=== PATIENT | male | born 1990 | race Asian ===

== ENCOUNTER 2019-07-31 20:34 | Emergency (ER) | payer OTHER ==
[2019-07-31 21:08] VITALS: BP 150/77
--- NOTE | 2019-07-31 21:12 | UC ---
General HPI - HPI Summary HPI Summary: SUDDEN LOSS OF LEFT LOWER VISUAL FIELD AT ABOUT 8 PM TONIGHT WHILE WATCHING TELEVISION. ALSO REPORTS WHAT SOUNDS LIKE SCOTOMATA IN THE REMAINDER OF HIS VISUAL SKY. HAS ASSOCIATED RIGHT OCCIPITAL AND RIGHT FRONTOTEMPORAL THROBBING HEADACHE. DENIES ANY RECENT HEAD INJURY OR TRAUMA. IS NOT UNDER UNDUE STRESS. NO SLEEP DEPRIVATION. NO RECENT ILLNESS OR FEVER. STATES HE HAD SIMILAR SYMPTOMS ABOUT 4 YEARS AGO THAT STARTED WHILE HE WAS IN A HEATED ARGUMENT WITH HIS PARENTS. HE DID NOT SEEK MEDICAL EVALUATION AT THAT TIME AND THE SYMPTOMS RESOLVED BY THE NEXT DAY. REPORTS A HISTORY OF SIGNIFICANT HEAD TRAUMA WHEN HE WAS 4 OR 5 YEARS OLD (STRUCK HIS HEAD ON THE BATHTUB) AND REMEMBERS SIMILAR SYMPTOMS AT THAT TIME WELL. WENT TO THE HOSPITAL AND HAD NEUROIMAGING WHICH WAS NORMAL. - History of Current Complaint Chief Complaint: UCHeadache Stated Complaint: VISUAL DISTORTION Time Seen by Provider: 07/31/19 20:39 Hx Obtained From: Patient, Family/Sprigger - Onset/Duration: Sudden Onset, Lasting Minutes, Still Present - BUT BETTER Timing: Constant Onset Severity: Moderate Current Severity: Mild Pain Intensity: 3 Associated Signs & Symptoms: Positive: Dizziness, Headache. Negative: Confusion , Nausea, Weakness - Allergy/Home Medications Allergies/Adverse Reactions: Allergies Allergy/AdvReac Type Severity Reaction Status Date / Time No Known Allergies Allergy Verified 07/31/19 20:43 Home Medications: Home Medications NK [No Home Medications Reported] 07/31/19 [History Confirmed 07/31/19] PMH/Surg Hx/FS Hx/Imm Hx Previously Healthy: Yes - Surgical History Surgical History: None - Family History Known Family History: Positive: Diabetes - Social History Alcohol Use: Occasionally Substance Use Type: None Smoking Status (MU): Never Smoked Tobacco Review of Systems All Other Systems Reviewed And Are Negative: Yes Constitutional: Positive: Other - DIZZY Eyes: Positive: Other - LEFT LOWER VISUAL FIELD LOSS Respiratory: Positive: Negative Cardiovascular: Positive: Negative Gastrointestinal: Positive: Negative Neurological: Positive: Headache - RIGHT OCCIPITAL, RIGHT FRONTOTEMPORAL Physical Exam Triage Information Reviewed: Yes Appearance: Well-Appearing, No Pain Distress, Well-Nourished Vital Signs: Initial Vital Signs Temp 98.1 F 07/31/19 20:38 Pulse 93 07/31/19 20:38 Resp 16 07/31/19 20:38 BP 147/82 07/31/19 20:38 Pulse Ox 99 07/31/19 20:38 Vital Signs Reviewed: Yes Eyes: Positive: Conjunctiva Clear, Other: - PERRL, EOMI ENT: Positive: Hearing grossly normal, Pharynx normal, TMs normal Neck: Positive: Supple, Nontender, No Lymphadenopathy Respiratory Exam: Normal Cardiovascular Exam: Normal Abdomen Description: Positive: Nontender, Soft Musculoskeletal: Positive: No Edema Neurological: Positive: Alert, Muscle Tone Normal, Other: - CN II-XII GROSSLY INTACT BILATERALLY. RAPID ALTERNATING MOVEMENTS INTACT. NEG PRONATOR DRIFT. NEG ROMBERG. 5/5 STRENGTH. HEEL TO STEVENS INTACT BILATERALLY. TANDEM GAIT INTACT. LEFT LOWER VISUAL FIELD DEFICIT. Psychological: Positive: Normal Response To Family, Age Appropriate Behavior Skin: Negative: Rashes Course/Dx - Course Course Of Treatment: TO [facility] [place] [facility] BY AMBULANCE - Diagnoses Provider Diagnosis: Visual field loss - Physician Notifications Discussed Patient Care With: Naomi Valdez - TO [facility] [place] [facility] BY AMBULANCE Time Discussed With Above Provider: 21:10 Instructed by Provider To: MD Will See In ED Discharge ED - Sign-Out/Discharge Documenting (check all that apply): Patient Departure All imaging exams completed and their final reports reviewed: No Studies - Discharge Plan Condition: Fair Disposition: TRANS HIGHER LVL OF CARE FAC Referrals: No Primary Care Phys,NOPCP [Primary Care Provider] - - Billing Disposition and Condition Condition: FAIR Disposition: Trans Higher Lvl of Care Fac
== END 2019-07-31 21:15 | disposition short-term general hospital (02) ==
LOC: UCEAST 20:34
DX: H54.7 Unspecified visual loss (principal); R51 Headache
CPT/HCPCS: 99203; G0463

== ENCOUNTER 2019-07-31 21:33 | Observation (INO) | payer OTHER ==
[2019-07-31] MEDS ORDERED: NS 0.9% 1000 ML** 1,000 ML IV ONE (21:46)
[2019-07-31 22:12] LABS: ABS Lymphocytes 2.6 10^3/ul (1.0-4.8); ABS Monocytes 0.7 10^3/ul (0-0.8); ABS Neutrophils 4.6 10^3/ul (1.5-7.7); Eosinophil % 0.1 %; Hematocrit 44 % (42-52); Hemoglobin 14.8 g/dL (14.0-18.0); Mean Corpuscular HGB Conc 34 g/dL (31-36); Mean Corpuscular Hemoglobin 29 pg (27-31); Mean Corpuscular Volume 85 fL (80-94); Mean Platelet Volume 7.1 fL (7.4-10.4); Nucleated Red Blood Cells % 0.1; Platelet Count 306 10^3/uL (150-450); Red Blood Count 5.15 10^6 /uL (4.18-5.48); Red Cell Distribution Width 13 % (10-15); White Blood Count 7.9 10^3/uL (3.5-10.8)
--- NOTE | 2019-07-31 22:13 | ED ---
Neurological HPI - HPI Summary HPI Summary: This pt is a 28 Y/O M presenting to [facility] accompanied by his for a CC of visual issues that started around 1999 while watching TV. He states that he became disoriented and was unable to see faces or see anything out of the L side of his head. He states that he started to experience numbness on the L side of his arms, upper parts of his lips, and the back of his tongue. He states that he has had a persistent headache above his eyebrow and is currently rated a 4/10 in severity. He states that he has had persistent nausea as well. He denies any CP, abdominal pain, vomiting, fevers, chills. He states that the numbness has been moving through out the described areas and has not been consistent in one spot. He has no aggravating or alleviating factors. He states a PMHx of similar symptoms that occurred when he was 5 years old and again when he was 23 following an argument with his parents. - History of Current Complaint Chief Complaint: EDNeurologicalDeficit Stated Complaint: LT SIDED WEAKNESS PER EMS Time Seen by Provider: 07/31/19 21:46 Last Known Well Date: before 1999 today Hx Obtained From: Patient Onset/Duration: Sudden Onset, Resolved Timing: Constant Onset Severity: Moderate Current Severity: Moderate Neurological Deficit Location: Facial - numbness, LUE - states that he had numbness Headache Location: Diffuse (Left) Pain Intensity: 4 Pain Scale Used: 0-10 Numeric Character: Numbness/Tingling - LUE, upper lip, and back of tongue, Sensory Loss - states visual loss in his L eye, Confusion, Visual Changes - L side was unable to be seen out of, couldn't see faces correctly Aggravating: Nothing Alleviating: Nothing Associated Signs and Symptoms: Positive: Headache, Numbness - LUE, upper lip, back of tongue, Nausea/Vomiting - denies vomiting. Negative: Fever, Chest Pain TPA Considered: No - symptoms are rapidly improving, NIH scale of 0. Similar Episode/Dx as: age 5 when he hit his head, and when he was 23 after an argument. - Allergy/Home Medications Allergies/Adverse Reactions: Allergies Allergy/AdvReac Type Severity Reaction Status Date / Time No Known Allergies Allergy Verified 07/31/19 21:43 PMH/Surg Hx/FS Hx/Imm Hx Previously Healthy: Yes Endocrine/Hematology History: Denies: Hx Diabetes Cardiovascular History: Denies: Hx Hypertension Neurological History: Reports: Other Neuro Impairments/Disorders - States similar episodes - Surgical History Surgical History: None - Immunization History Immunizations Up to Date: Yes Infectious Disease History: No Infectious Disease History: Denies: Traveled Outside the [place] in Last 30 Days - Family History Known Family History: Positive: Hypertension, Diabetes - Social History Occupation: Student - [employer] Lives: With Family Alcohol Use: Occasionally Alcohol Amount: 2-3 beers a week Hx Substance Use: No Substance Use Type: Reports: None Hx Tobacco Use: Yes Smoking Status (MU): Former Smoker Amount Used/How Often: 6 cigarettes per day for 2 years Length of Time of Smoking/Using Tobacco: Quit 1.5 years ago Household Exposure: No Review of Systems Negative: Fever, Chills Eyes: Other - couldn't see out of his L eye Negative: Chest Pain Positive: Nausea. Negative: Abdominal Pain, Vomiting Neurological: Other - states that he was unable to understand any faces. Positive: Headache, Numbness - LUE, Upper lip, back of tongue All Other Systems Reviewed And Are Negative: Yes Physical Exam - Summary Physical Exam Summary: Appearance: Well-appearing, Well-nourished, lying in bed comfortably Skin: Warm, dry, no obvious rash Eyes: sclera anicteric, no conjunctival pallor ENT: mucous membranes moist, pharynx appears normal Neck: Supple, nontender Respiratory: Clear to auscultation, no signs of respiratory distress Cardiovascular: Normal S1, S2. No murmurs. Normal distal pulses in tibial and radial bilaterally. Abdomen: Soft, nontender, normal active bowel sounds present Musculoskeletal: Normal, Strength/ROM Intact, Motor function in all 4 extremities is normal and symmetric. There is no rigidity or tremor noted. Neurological: A&Ox3, awake and alert, mentation is normal, speech is fluent and appropriate, Level of consciousness nml. The patient is alert and oriented. Cranial nerves are grossly intact. Gaze is conjugate and without nystagmus. Peripheral vision is intact to confrontation. There are no gross sensory abnormalities to light touch. There is no truncal or fine motor ataxia. Gait is normal. Psychiatric: affect is normal, does not appear anxious or depressed Triage Information Reviewed: Yes Vital Signs On Initial Exam: Initial Vitals Temp Pulse Resp BP Pulse Ox 97.7 F 76 14 149/88 96 07/31/19 21:40 07/31/19 21:40 07/31/19 21:40 07/31/19 21:40 07/31/19 21:40 Vital Signs Reviewed: Yes Procedures - Sedation Patient Received Moderate/Deep Sedation with Procedure: No Diagnostics - Vital Signs Vital Signs Temp Pulse Resp BP Pulse Ox 07/31/19 21:57 98 07/31/19 21:40 97.7 F 76 14 149/88 96 - Laboratory Result Diagrams: 07/31/19 22:04 07/31/19 22:04 Lab Statement: Any lab studies that have been ordered have been reviewed, and results considered in the medical decision making process. - CT Brain CT CT Interpretation Completed By: Radiologist Summary of CT Findings: No acute intracranial pathologies. ED physician has reviewed this report. Head CTA CT Interpretation Completed By: Radiologist Summary of CT Findings: No intracranial arterial occlusion or hemodynamically significant stenosis. ED physician has reviewed this report. - EKG 2156 Cardiac Rate: NL - 69 BPM EKG Rhythm: Sinus Rhythm ST Segment: Normal Ectopy: None Summary of EKG Findings: NSR at 69 BPM, P waves, QRS complex, and T waves are within normal limits, T waves and intervals are normal, no ischemic changes. This is a normal EKG. Interpreted by Dr. Rivas at 2203 07/31/19. NIH Scale - NIH Scale Level of Consciousness: Alert/Keenly Responsive Ask Patient the Month and His/Her Age: Both Correct Ask Pt to Open/Close Eyes and Trimming Department Blocker/Release Non-Paretic Hand: Both Correctly Best Gaze (Only Horizontal Eye Movement): Normal Visual Field Testing: No Visual Loss Facial Paresis-Pt to Smile & Close Eyes or Grimace Symmetry: Normal/Symmetrical Motor Function - Right Arm: No Drift-Holds 10 Seconds Motor Function - Left Arm: No Drift-Holds 10 Seconds Motor Function - Right Leg: No Drift-Holds 10 Seconds Motor Function - Left Leg: No Drift-Holds 10 Seconds Limb Ataxia-Must be out of Proportion to Weakness Present: Absent Sensory (Use Pinprick to Test Arms/Legs/Trunk/Face): Normal Best Language (Describe Picture, Name Items): No Aphasia Dysarthria (Read Several Words): Normal Extinction and Inattention: No Abnormality Total Score: 0 Course/Dx - Course Course Of Treatment: This pt is a 28 Y/O M presenting to [facility] accompanied by his for a CC of visual issues that started around 1999 while watching TV. He states that he became disoriented and was unable to see faces or see anything out of the L side of his head. He states that he started to experience numbness on the L side of his arms, upper parts of his lips, and the back of his tongue. He states that he has had a persistent headache above his eyebrow and is currently rated a 4/10 in severity. His PE found no acute abnormalities. A code fernando was called at 2144. His Brain CT found that he has no acute intracranial pathologies. His EKG at 2155 shows NSR at 69 BPM, P waves , QRS complex, and T waves are within normal limits, T waves and intervals are normal, no ischemic changes. This is a normal EKG. Dr. Silva, neurology, was consulted at 2249 and agreed that TPA was not needed and recommended ASA, and an MRI when available. His Head CTA shows the following: No intracranial arterial occlusion or hemodynamically significant stenosis. He will be admitted to [facility] for further investigations by Dr. Higginbotham. He was diagnosed with a TIA. - Diagnoses Provider Diagnoses: TIA (transient ischemic attack) During the Visit The Following Alert/Code Occurred: Gloria Sarmiento - 2144 - Physician Notifications Discussed Care Of Patient With: Juan C Silva Time Discussed With Above Provider: 22:50 Instructed by Provider To: Admit As Inpatient - Dr. Silva, neurology, agreed that TPA was not needed and recommended ASA, and an MRI when available. Dr. Higginbotham, Hospitalist, accepted the pt for admission. Admit/Transition Orders Completed By ED Provider: Yes Discharge ED - Sign-Out/Discharge Documenting (check all that apply): Patient Departure - admitted - Discharge Plan Condition: Good Disposition: ADMITTED TO [facility] Referrals: No Primary Care Phys,NOPCP [Primary Care Provider] - - Billing Disposition and Condition Condition: GOOD Disposition: Admitted to [facility] - Attestation Statements Document Initiated by Scribe: Yes Documenting Scribe: Cristofer Lopez Provider For Whom Scribe is Documenting (Include Credential): Boby Mitchell MD Scribe Attestation: Cristofer Vera, scribed for Boby Mitchell MD on 08/01/19 at 0402. Scribe Documentation Reviewed: Yes Provider Attestation: The documentation as recorded by the scribe, Cristofer Lopez accurately reflects the service I personally performed and the decisions made by me, Boby Mitchell MD Status of Scribe Document: Viewed
[2019-07-31 22:24] LABS: Activated Partial Thrombo Time 36.1 seconds (26.0-38.0)
[2019-07-31 22:27] LABS: Albumin 4.6 g/dL (3.2-5.2); BUN/Creatinine Ratio 9.5 (8-20); Calcium 9.2 mg/dL (8.6-10.3); EGFR African American 114.2 (>60); EGFR Non-African American 94.4 (>60); Globulin 2.3 g/dL (2-4); HDL Cholesterol 52.2 mg/dL; Potassium 3.5 mmol/L (3.5-5.0); Total Bilirubin 0.8 mg/dL (0.2-1.0); Total Protein 6.9 g/dL (6.4-8.9)
[2019-07-31 22:41] LABS: Urine Appearance Clear; Urine Bacteria Absent (Absent); Urine Bilirubin Negative (Negative); Urine Blood 2+ (Negative); Urine Color Yellow; Urine Glucose Negative (Negative); Urine Ketones Negative (Negative); Urine Nitrite Negative (Negative); Urine Protein Negative (Negative); Urine Red Blood Cell 3+(>10/hpf) (Absent); Urine Specific Gravity 1.011 (1.010-1.030); Urine Urobilinogen Negative (Negative); Urine White Blood Cell Trace(0-5/hpf) (Absent)
[2019-07-31] MEDS ORDERED: Aspirin TAB* 325 MG PO ONE (22:48)
[2019-07-31] MEDS ORDERED: Iohexol 350* (CONTRAST) 500 ML MDV IV ONE (22:50)
[2019-07-31] MEDS ORDERED: Ondansetron ODT TAB* 4 MG SL ONE (23:32)
[2019-08-01 07:28] VITALS: BP 115/91
--- NOTE | 2019-08-01 07:51 | PN ---
Hospitalist Progress Note Date of Service: 08/01/19 Subjective: Chief complaint is numbness and visual issues on the left side of his body. Today he has some improvements. Objective: Vitals-BP 113/66, resp rate- 15, pulse- 60, temp-97 Appearance: Well-appearing, Well-nourished, lying in bed comfortably Skin: Warm, dry, no obvious rash Eyes: sclera anicteric, no conjunctival pallor ENT: mucous membranes moist, pharynx appears normal Neck: Supple, nontender Respiratory: Clear to auscultation, no signs of respiratory distress Cardiovascular: Normal S1, S2. No murmurs. Normal distal pulses in tibial and radial bilaterally. Abdomen: Soft, nontender, normal active bowel sounds present Musculoskeletal: Normal, Strength/ROM Intact, Motor function in all 4 extremities is normal and symmetric. There is no rigidity or tremor noted. Neurological: A&Ox3, awake and alert, mentation is normal, speech is fluent and appropriate, Level of consciousness nml. The patient is alert and oriented. Cranial nerves are grossly intact. Gaze is conjugate and without nystagmus. Peripheral vision is intact to confrontation. There are no gross sensory abnormalities to light touch. There is no truncal or fine motor ataxia. Gait is normal. Psychiatric: affect is normal, does not appear anxious or depressed MPV: 7.1 L Urine blood: 2+ A Urine RBC: 3+(>10/hpf) A Brain CT: No acute intracranial pathology. Chest xray: no abnormalities. EKG: sinus rhythm, normal rate Head CTA: No intracranial arterial occlusion or hemodynamically significant stenosis. Assessment: Sam Sarah is a 28 year old male with complaints of visual issues, hes unable to see faces or see anything out of the L side of his head. He states that he started to experience numbness on the L side of his arms, upper parts of his lips, and the back of his tongue. He also has had nausea and a persistent headache above his eyebrow and is currently rated a 4/10 in severity. Plan: 1. Transient ischemic attack (TIA) is now defined as a transient episode of neurologic dysfunction caused by focal brain, spinal cord, or retinal ischemia, without acute infarction - resolved within 24 hours. a. Treatment-aspirin 325 mg PO daily. b. ABCD2 score of 2 points (Per the validation study, 0-3 points: Low Risk i. 2-Day Stroke Risk: 1.0% ii. 7-Day Stroke Risk: 1.2% iii. 90-Day Stroke Risk: 3.1%
--- NOTE | 2019-08-01 08:21 | HP ---
ADMISSION HISTORY AND PHYSICAL: DATE OF ADMISSION: 08/01/19 CHIEF COMPLAINT: Vision loss and numbness. HISTORY OF PRESENT ILLNESS: This is a 28-year-old male with no significant past medical or surgical history, was sent into the ER from the urgent center for possible stroke. The patient stated that he was in his usual state of health up until 8 p.m. when he was watching TV with his and suddenly he noticed that left side of his vision was completely gone. It was indeed his left field of the vision not just one eye, even when he saw his , he could not see the left side at which point, both the and himself decided to go to the urgent center. He felt a little disoriented and his needed to guide him towards the car and how to get to urgent center. By the time, he reached the urgent care center by 8:40 p.m., his vision loss had completely resolved, but he started having headache on the right side and left arm numbness. The numbness was mostly in the left hand, which then radiated towards his left lips and also he felt like the back of his throat on the left side was also very numb. It almost felt like his tongue was very swollen. The secondary symptoms lasted about 20 minutes, although the patient still had persistent headache on the right frontal area. He also had severe nausea throughout this time, but denied to have any vomiting. His headache resolved after he received 325 mg of aspirin in the emergency room. He, otherwise, offers no chest pain, dizziness, lightheadedness, any other weakness anywhere in his body and no other areas of numbness other than the ones as already mentioned. He stated that he had a similar event when he was just a 5-year-old child and another event when he was 23-year-old and had an argument with his parents, however, today he did not have any stressful situation. He was relaxing and watching TV. PAST MEDICAL HISTORY: As mentioned, no significant past medical or surgical history other than previous episodes of similar events. The patient is unable to recall if he had any headache in the previous events, but the rest of the vision loss was very similar. HOME MEDICATIONS: The patient is currently not taking any home medications. ALLERGIES: No significant allergies. FAMILY HISTORY: Father, age 61 had high blood pressure and father side of the family also suffers diabetes. Mother, age 65, otherwise healthy. SOCIAL HISTORY: The patient quit smoking about a year and a half ago. Prior to that, he used to smoke about 6 cigarettes a day for 2 years. He drinks about 2 to 3 drinks a week. Denies any other drug use. He is a student at [employer] and studies [employer]. He is and living with his . REVIEW OF SYSTEMS: A 14-point review of systems did not reveal any new information, other than what is mentioned in the HPI. PHYSICAL EXAMINATION GENERAL: The patient is awake, alert, and oriented x3, did not appear to be in any acute respiratory distress. VITAL SIGNS: In the ER, BP was noted to be 121/75, heart rate 60, respiration rate 18, saturating 99% on room air, temperature was reported at 98.2 maximum. HEENT: Atraumatic, normocephalic. Bilateral pupils are reactive. Oral mucosa was moist. NECK: Supple. No jugular venous distention. LUNGS: Clear to auscultation bilaterally. No wheezing, rhonchi, or rales. HEART: S1, S2. Regular rate and rhythm. ABDOMEN: Soft, nontender. EXTREMITIES: No cyanosis, clubbing, or edema. Strength is 5/5 in all extremities without any numbness. DIAGNOSTIC STUDIES/LAB DATA: CBC was noted to be within normal limits. Coagulation profile is normal. Comprehensive metabolic panel was unremarkable with glucose of 83. LDL was noted to be at goal at 72. Troponin is negative. Initial brain CT performed in the ER showed no acute intracranial pathology with ASPECT scores of 10 and CTA of the head and neck showed no intracranial arterial occlusion or hemodynamically significant stenosis in both the head or the neck. Portable chest x-ray shows clear lung akhtar without any cardiomegaly. EKG showed sinus rhythm at 69 beats per minute without any ST elevation. No older EKG to compare. IMPRESSION: This is a 28-year-old gentleman without any medical problems, here due to plethora of neurological problems all of which have resolved including left visual field loss, left arm numbness, and right-sided headache. ASSESSMENT/PLAN: Transient ischemic attack with vision loss and left-sided numbness and right headache, could be complex migraine. For now, we will monitor the patient on telemetry. We will get an echocardiogram with bubble study, A1c in the morning to rule out any diabetes, and monitor on telemetry to rule out any arrhythmias causing the patient's symptoms. We will also get carotid Doppler and consider neurology consultation in the morning to see if any further testing would benefit the patient. Otherwise, we will start the patient on 325 mg of aspirin daily. DVT prophylaxis, encourage ambulation. Code status is full code. [id number]/CPS #: [id number] MTDD
[2019-08-01] MEDS ORDERED: Aspirin EC TAB* 325 MG PO SCH (09:00)
[2019-08-01 10:48] LABS: BUN/Creatinine Ratio 10.2 (8-20); Calcium 9.1 mg/dL (8.6-10.3); EGFR African American 124.8 (>60); EGFR Non-African American 103.1 (>60); Potassium 3.8 mmol/L (3.5-5.0)
[2019-08-01 13:32] LABS: ABS Lymphocytes 3.1 10^3/ul (1.0-4.8); ABS Monocytes 0.6 10^3/ul (0-0.8); ABS Neutrophils 4.8 10^3/ul (1.5-7.7); Eosinophil % 0.5 %; Hematocrit 43 % (42-52); Hemoglobin 14.4 g/dL (14.0-18.0); Lymphocyte % 36.2 %; Mean Corpuscular HGB Conc 34 g/dL (31-36); Mean Corpuscular Hemoglobin 29 pg (27-31); Mean Corpuscular Volume 86 fL (80-94); Mean Platelet Volume 7.6 fL (7.4-10.4); Platelet Count 316 10^3/uL (150-450); Red Blood Count 4.95 10^6 /uL (4.18-5.48); Red Cell Distribution Width 13 % (10-15); White Blood Count 8.6 10^3/uL (3.5-10.8)
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
== END 2019-08-01 15:53 | disposition home or self-care (01) ==
LOC: ED 21:33 → MEDTELE 08-01 04:40
PROVIDERS: ADMIT Internal Medicine; ATTEND Internal Medicine
DX: G43.909 Migraine, unspecified, not intractable, without status migrainosus (principal); Z79.82 Long term (current) use of aspirin; Z87.891 Personal history of nicotine dependence; R20.0 Anesthesia of skin; R11.0 Nausea; H53.9 Unspecified visual disturbance
CPT/HCPCS: 36415; 70450; 70496; 70498; 71045; 80048; 80053; 80061; 81003; 81015; 83036; 83605; 84484; 85025; 85610; 85730; 87086; 93005; 96360; 99284; A9270-GY; G0378; Q9967